=== PATIENT | male | born 1950 | race Caucasian/White ===

== ENCOUNTER 2020-05-10 11:42 | Outpatient (CLI) | payer MEDICARE ==
[2020-05-10 12:36] LABS: #Basophils 0.1 10x3/uL (0.0-0.2); #Eosinphils 0.5 10x3/uL (0.0-0.5); #Neutrophils 8.2 10x3/uL (1.5-8.4); %Basophils 0.7 % (0.0-2.0); %Eosinophils 4.4 % (0.0-6.0); %Lymphocytes 17.9 % (18.0-47.0); %Monocytes 8.4 % (0.0-10.0); %Neutrophils 68.1 % (40.0-75.0); Hemoglobin 14.4 g/dL (13.5-17.5); Mean Corpuscular HGB CONC 33.3 g/dL (32.0-36.0); Mean Corpuscular Volume 93.3 fl (81.2-95.1); Mean Platelet Volume 9.6 fl (7.4-10.4); Platelet Count 349 10x3/uL (150-450); RBC Distribution Width 12.5 % (11.5-14.5); Red Blood Cell (RBC) Count 4.64 10x6/uL (4.32-5.72); White Blood Cell (WBC) Count 12.1 10x3/uL (3.5-10.5)
[2020-05-10 13:35] LABS: Anion Gap 15 mmol/L (10-20); BUN (Urea Nitrogen) 7 mg/dL (8.4-25.7); Calc. Creatinine Clearance 0 mL/min (70-130); Calcium 9.2 mg/dL (7.8-10.44); Carbon Dioxide 28 mmol/L (23-31); Chloride 101 mmol/L (98-107); Glucose 90 mg/dL (83-110); Potassium 3.9 mmol/L (3.5-5.1); Sodium 140 mmol/L (136-145)
[2020-05-11 02:31] LABS: SARS-CoV-2 PCR by NAA Not Detected (NotDetected)
== END 2020-05-10 11:43 | disposition home or self-care (01) ==
LOC: LABBT 11:42
PROVIDERS: ATTEND Specialist
DX: Z01.812 Encounter for preprocedural laboratory examination (principal); K40.90 Unilateral inguinal hernia, without obstruction or gangrene, not specified as recurrent; Z20.822 Contact with and (suspected) exposure to COVID-19
CPT/HCPCS: 80048; 85025; U0003; U0005; 87635

== ENCOUNTER 2020-05-15 05:57 | Day surgery (SDC) | payer MEDICARE ==
[2020-05-14 10:23] VITALS: BMI 21.1
[2020-05-15] MEDS ORDERED: Gabapentin 300 MG CAP ONE (06:17)
[2020-05-15] MEDS ORDERED: Ketorolac Tromethamine 30 MG/ML VIAL ONE (06:17)
[2020-05-15] MEDS ORDERED: Acetaminophen 500 MG TAB ONE (06:17)
[2020-05-15] MEDS ORDERED: Lidocaine 1% w/Epinephrine 1:100K 20 ML VIAL ONE (06:36)
[2020-05-15] MEDS ORDERED: Bupivacaine 0.25% HCL 30 ML VIAL ONE (06:36)
[2020-05-15] MEDS ORDERED: Fentanyl 250 MCG/5 ML VIAL ONE (06:51)
[2020-05-15] MEDS ORDERED: Midazolam HCl 2 mg/2 ml Vial ONE (07:17)
[2020-05-15] MEDS ORDERED: Fentanyl 100 MCG/2 ML VIAL ONE (09:21)
--- NOTE | 2020-05-15 09:53 | OP ---
DATE OF PROCEDURE: 05/15/2020 PREOPERATIVE DIAGNOSIS: Right inguinal hernia. POSTOPERATIVE DIAGNOSIS: Right inguinal hernia. PROCEDURE PERFORMED: Robot laparoscopic 3D Bard Max large right inguinal hernia repair with mesh. ANESTHESIA: General, local 0.5% Marcaine 30 mL mixed with 1% Xylocaine with epinephrine 20 mL total volume used. DESCRIPTION OF PROCEDURE: The patient was taken to the operating room, where under general anesthesia, Castellano catheter was placed at the beginning of procedure, removed at the end. Abdomen was clipped of hair, prepared with ChloraPrep, and draped in routine fashion. A supraumbilical left of midline incision was made. Pneumoperitoneum to 15 mmHg was obtained with a Veress needle, replaced with 11 port balloon port, and the laparoscope inserted. Left lateral and right lateral incisions were made and 8 mm port was placed. Robot docked, positioned, and robot hernia repair undertaken, dropping the peritoneal flap from the midline to the anterior superior iliac spine above the large indirect hernia defect. Peritoneal flap dissected free, identifying the pubis in the midline, dissecting the hernia sac from the cord structures, skeletonizing it for at least 8 cm. Dissection carried out laterally. Good hemostasis obtained with cautery. 3D Bard Max large mesh inserted and properly positioned and secured to the Heriberto ligament with 2-0 Vicryl and to the abdominal wall to the right of the inferior epigastric vessels, which had been preserved with 2-0 Vicryl. Mesh was properly positioned. Good hemostasis was noted. Peritoneal flap was closed with continuous suture #2-0 V-Loc suture. Good hemostasis was noted. Instruments were removed. Pneumoperitoneum was evacuated. All instruments were removed. All skin incisions were approximated with subdermal 4-0 Monocryl, and the anterior rectus fascia left of midline above the umbilicus was closed with 0 Vicryl UR needle. The patient tolerated the procedure well. Job ID: [id number]
[2020-05-15] MEDS ORDERED: Ondansetron PF 4 MG/2 ML Vial ONE (10:06)
[2020-05-15] MEDS ORDERED: Lidocaine 1% PF 5 ML VIAL ONE (10:06)
[2020-05-15] MEDS ORDERED: Rocuronium Bromide 10 MG/ML (10ML VIAL) ONE (10:06)
[2020-05-15] MEDS ORDERED: Glycopyrrolate 0.2 MG/ML 5 ML SYRINGE ONE (10:06)
[2020-05-15] MEDS ORDERED: Dexamethasone 20 MG/5 ML VIAL ONE (10:06)
[2020-05-15] MEDS ORDERED: PROPOFOL 200 MG/20 ML VIAL ONE (10:06)
== END 2020-05-15 11:20 | disposition home or self-care (01) ==
LOC: SDC 05:57
PROVIDERS: ATTEND Specialist
PROC: 0YU54JZ Supplement Right Inguinal Region with Synthetic Substitute, Percutaneous Endoscopic Approach (ICD-10-PCS; principal; 2020-05-15)
DX: K40.90 Unilateral inguinal hernia, without obstruction or gangrene, not specified as recurrent (principal); I10 Essential (primary) hypertension; E78.5 Hyperlipidemia, unspecified; I25.10 Atherosclerotic heart disease of native coronary artery without angina pectoris; I25.2 Old myocardial infarction; F17.290 Nicotine dependence, other tobacco product, uncomplicated; Z79.02 Long term (current) use of antithrombotics/antiplatelets; Z79.82 Long term (current) use of aspirin; Z79.899 Other long term (current) drug therapy
CPT/HCPCS: C1781; J0690; J1100; J1885; J2250; J2405; J2704; J3010; S0020

== ENCOUNTER 2020-07-10 08:27 | Outpatient (CLI) | payer MEDICARE | END 2020-07-10 08:28 | disposition home or self-care (01) | LOC: BICRAD 08:27 | PROVIDERS: ATTEND Internal Medicine Cardiovascular Disease | DX: R04.2 Hemoptysis (principal) | CPT/HCPCS: 71046 ==

== ENCOUNTER 2020-07-18 10:52 | Inpatient (IN) | payer MEDICARE ==
[2020-07-18] MEDS ORDERED: Iopamidol-370 76% 500 ML 1 ML ONE (11:23)
[2020-07-18 11:54] LABS: #Basophils 0.1 thou/uL (0.0-0.2); #Eosinphils 0.3 thou/uL (0.0-0.7); #Lymphocytes 2.1 thou/uL (1.20-3.40); #Monocytes 1.1 thou/uL (0.11-0.59); #Neutrophils 8.1 thou/uL (1.40-6.50); %Basophils 0.7 % (0.0-1.0); %Eosinophils 2.8 % (0.0-10.0); %Lymphocytes 17.7 % (21.0-51.0); %Neutrophils 69.7 % (42.0-75.0); Hemoglobin 11.3 g/dL (14.0-18.0); Mean Corpuscular HGB CONC 33.6 g/dL (32.0-36.0); Mean Corpuscular Hemoglobin 30.9 pg (27.0-31.0); Mean Corpuscular Volume 91.8 fL (78.0-98.0); Platelet Count 406 thou/uL (130-400); RBC Distribution Width 10.9 % (11.5-14.5); Red Blood Cell (RBC) Count 3.65 mill/uL (4.70-6.10); White Blood Cell (WBC) Count 11.6 thou/uL (4.8-10.8)
[2020-07-18 12:13] LABS: ALT (SGPT) 7 U/L (8-55); AST (SGOT) 11 U/L (5-34); Albumin 4.1 g/dL (3.4-4.8); Alkaline Phosphatase 76 U/L (40-110); Anion Gap 15 mmol/L (10-20); BUN (Urea Nitrogen) 10 mg/dL (8.4-25.7); CK (CPK) 45 U/L (30-200); Calc. Creatinine Clearance 0 mL/min (70-130); Calcium 9.5 mg/dL (7.8-10.44); Carbon Dioxide 28 mmol/L (23-31); Chloride 96 mmol/L (98-107); Globulin 2.9 g/dL (2.4-3.5); Glucose 123 mg/dL (83-110); Lipase 25 U/L (8-78); Magnesium 1.3 mg/dL (1.6-2.6); Sodium 136 mmol/L (136-145)
[2020-07-18 15:56] LABS: Bacteria/HPF None Seen HPF (None Seen); Bilirubin Negative (Negative); Blood, Urine 1+ (Negative); Clarity Clear (Clear); Glucose, Urine (Dipstick) Normal (Negative); Ketone, Urine 20 mg/dL (Negative); Leukocyte Negative Leu/uL (Negative); Nitrite Negative (Negative); Protein, Urine (Dipstick) Negative (Neg-Trace); Squamous Epithelial None Seen HPF (0-3); Urobilinogen Normal mg/dL (Less than 2); WBC/HPF 0-3 HPF (0-3)
[2020-07-18 16:02] LABS: Specific Gravity, Urine 1.044 (1.002-1.036)
[2020-07-18] MEDS ORDERED: Ondansetron PF 4 MG/2 ML Vial IVP PRN (16:25)
[2020-07-18] MEDS ORDERED: Potassium Phosphate 30 MMOL in Sodium Chloride 0.9% 250 ML 250 ML IVPB SCH (16:45)
[2020-07-18] MEDS ORDERED: Magnesium 2 GM/50 ML 2 GM in Premix Bag 1 BAG IVPB SCH (16:45)
[2020-07-18] MEDS ORDERED: Nicotine 14 MG PATCH TD SCH (17:00)
[2020-07-18] MEDS ORDERED: NS 0.9% w/ 20 MEQ KCL 1,000 ML ONE (17:51)
[2020-07-18] MEDS ORDERED: Racepinephrine 2.25% 0.5 ML NEB ONE (19:18)
[2020-07-18] MEDS ORDERED: Pantoprazole 40 MG VIAL IVP SCH (21:00)
[2020-07-18 21:09] LABS: SARS-CoV-2 NAA Rapid Test Not Detected (NotDetected)
== END 2020-07-18 22:24 | disposition short-term general hospital (02) | DRG 202 ==
LOC: ERS 10:52 → ERHOLD 14:57
PROVIDERS: ADMIT Internal Medicine; ATTEND Internal Medicine
DX: J39.8 Other specified diseases of upper respiratory tract (principal); R04.2 Hemoptysis; R64 Cachexia; K92.0 Hematemesis; Z20.822 Contact with and (suspected) exposure to COVID-19; I10 Essential (primary) hypertension; E78.00 Pure hypercholesterolemia, unspecified; F17.210 Nicotine dependence, cigarettes, uncomplicated; I25.2 Old myocardial infarction; Z79.82 Long term (current) use of aspirin; Z79.899 Other long term (current) drug therapy
CPT/HCPCS: 0240U; 36415; 71275; 80053; 81003; 81015; 82550; 83690; 83735; 84484; 85025; 85379; 93005; 96365; 96366; J3480; Q9967